=== PATIENT | male | born 1965 | race Two or more races ===

== ENCOUNTER 2022-11-28 07:26 | Outpatient (CLI) | payer OTHER | END 2022-11-28 07:41 | disposition home or self-care (01) | LOC: TOM 07:26 → RX STUDY 07:26 | DX: C20 Malignant neoplasm of rectum (principal); Z93.2 Ileostomy status ==

== ENCOUNTER 2022-12-07 08:33 | Outpatient (CLI) | payer OTHER | END 2022-12-07 08:46 | disposition home or self-care (01) | LOC: RX STUDY 08:33 | DX: C20 Malignant neoplasm of rectum (principal); Z93.2 Ileostomy status ==